=== PATIENT | female | born 2000 | race Caucasian/White ===

== ENCOUNTER 2020-12-29 23:38 | Emergency (ER) | payer SELFPAY ==
[2020-12-30] MEDS ORDERED: AZITHROMYCIN 250 MG TAB ONE (01:09)
[2020-12-30] MEDS ORDERED: CEFTRIAXONE 500 MG/VIAL ONE (01:09)
[2020-12-30] MEDS ORDERED: WATER FOR INJ,STERILE 10 ML ONE (01:10)
--- NOTE | 2020-12-30 01:41 | ER ---
Nurse's Notes [facility] Name: Betsy Crain Age: 20 yrs Sex: Female : 2000 Arrival Date: 12/29/2020 Time: 23:40 Bed 20 Private MD: Diagnosis: STD Exposure Presentation: 12/29 23:49 Chief complaint: Patient states: significant other text her today telling her he tested em positive for gonorrhea, denies burning with urination, discharge or pain. Coronavirus screen: Client denies travel out of the [place] in the last 14 days. Ebola Screen: Patient negative for fever greater than or equal to 101.5 degrees Fahrenheit, and additional compatible Ebola Virus Disease symptoms Patient denies exposure to infectious person. Patient denies travel to an Ebola-affected area in the 21 days before illness onset. No symptoms or risks identified at this time. Initial Sepsis Screen: Does the patient meet any 2 criteria? HR > 90 bpm. No. Patient's initial sepsis screen is negative. Does the patient have a suspected source of infection? No. Patient's initial sepsis screen is negative. Risk Assessment: Do you want to hurt yourself or someone else? Patient reports no desire to harm self or others. Onset of symptoms was December 29, 2020. 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 - Social history:: Smoking status: Reported history of juuling and/or vaping. Screenin/18 00:14 Abuse screen: Denies threats or abuse. Nutritional screening: No deficits noted. ea Tuberculosis screening: No symptoms or risk factors identified. Fall Risk None identified. Assessment: 00:45 General: Appears in no apparent distress. Behavior is calm, cooperative, appropriate ea for age. Pain: Denies pain. Neuro: Level of Consciousness is awake, alert, obeys commands, Oriented to person, place, time. Cardiovascular: Patient's skin is warm and dry. Respiratory: Airway is patent Respiratory effort is even, unlabored, Respiratory pattern is regular, symmetrical. Derm: Skin is pink, warm \T\ dry. 01:21 Reassessment: Patient and/or family updated on plan of care and expected duration. Pain ea level reassessed. Patient is alert, oriented x 3, equal unlabored respirations, skin warm/dry/pink. Awaiting on disposition. 01:45 Reassessment: Patient and/or family updated on plan of care and expected duration. Pain ea level reassessed. Patient is alert, oriented x 3, equal unlabored respirations, skin warm/dry/pink. Discharge instruction given to patient verbalized the understanding of instruction. pt left ED ambulatory tolerating well. Vital Signs: 12/29 23:49 BP 127 / 73; Pulse 101; Resp 20; Temp 98.7; Pulse Ox 99% on R/A; Weight 52.16 kg; em Height 5 ft. 5 in. (165.10 cm); Pain 0/10; 12/30 01:46 BP 120 / 68; Pulse 88; Resp 18; Pulse Ox 100% ; ea 12/29 23:49 Body Mass Index 19.14 (52.16 kg, 165.10 cm) em ED Course: 12/29 23:40 Patient arrived in ED. bp1 23:51 Triage completed. em 23:52 Arm band placed on. em 12/30 00:14 Shital Singh, RN is Primary Nurse. ea 00:14 Patient has correct armband on for positive identification. Bed in low position. Call ea light in reach. 00:16 Humble Mayer MD is Attending Physician. 7 01:40 La Lockhart MD is Referral Physician. [facility] 01:46 No provider procedures requiring assistance completed. Patient did not have IV access ea during this emergency room visit. Administered Medications: 00:58 Drug: Rocephin (cefTRIAXone) 500 mg Route: IM; Site: right gluteus; ea 01:20 Follow up: Response: No adverse reaction ea 00:58 Drug: AZITHromycin 1 grams Route: PO; ea 01:20 Follow up: Response: No adverse reaction ea Outcome: 01:40 Discharge ordered by . 7 01:46 Discharged to home ambulatory, with family. ea 01:46 Condition: stable 01:46 Discharge instructions given to patient, Instructed on discharge instructions, follow up and referral plans. Demonstrated understanding of instructions, follow-up care. 01:47 Patient left the ED. ea Signatures: Chaz Dempsey, RN Shital Carpio RN RN ea Paniauga, Brittany bp1 Holmes, Maurice, MD MD mh7
--- NOTE | 2020-12-30 01:41 | EDPHYS ---
Physician Documentation [facility] Name: Betsy Crain Age: 20 yrs Sex: Female : 2000 Arrival Date: 12/29/2020 Time: 23:40 Bed 20 Private MD: ED Physician Humble Mayer HPI: 12/30 01:04 This 20 yrs old Female presents to ER via Ambulatory with complaints of STD mh7 Exposure. 01:04 The patient presents with a possible exposure to a sexually transmitted disease, mh7 gonorrhea. Onset: The symptoms/episode began/occurred today. Modifying factors: The symptoms are alleviated by nothing, the symptoms are aggravated by nothing. Associated signs and symptoms: Pertinent negatives: constipation, cramping, diarrhea, dyspareunia, dysuria, fever, hematuria, nausea, urinary frequency, vaginal bleeding, vaginal discharge, vomiting. Severity of symptoms: At their worst the symptoms were no symptoms, in the emergency department the symptoms no symptoms. The patient is sexually active, reportedly has a single partner, does not use protection during intercourse. States that her boyfriend text her that he tested positive for gonorrhea. She denies any symptoms.. 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 - Social history:: Smoking status: Reported history of juuling and/or vaping. ROS: 12/30 01:04 Constitutional: Negative for fever, chills, and weight loss, Eyes: Negative for injury, mh7 pain, redness, and discharge, ENT: Negative for injury, pain, and discharge, Neck: Negative for injury, pain, and swelling, Cardiovascular: Negative for chest pain, palpitations, and edema, Respiratory: Negative for shortness of breath, cough, wheezing, and pleuritic chest pain, Abdomen/GI: Negative for abdominal pain, nausea, vomiting, diarrhea, and constipation, Back: Negative for injury and pain, : Negative for injury, bleeding, discharge, and swelling, MS/Extremity: Negative for injury and deformity, Skin: Negative for injury, rash, and discoloration, Neuro: Negative for headache, weakness, numbness, tingling, and seizure, Psych: Negative for depression, anxiety, suicide ideation, homicidal ideation, and hallucinations, Allergy/Immunology: Negative for hives, rash, and allergies, Endocrine: Negative for neck swelling, polydipsia, polyuria, polyphagia, and marked weight changes, Hematologic/Lymphatic: Negative for swollen nodes, abnormal bleeding, and unusual bruising. Exam: 01:04 Constitutional: This is a well developed, well nourished patient who is awake, alert, mh7 and in no acute distress. Head/Face: Normocephalic, atraumatic. Eyes: Pupils equal round and reactive to light, extra-ocular motions intact. Lids and lashes normal. Conjunctiva and sclera are non-icteric and not injected. Cornea within normal limits. Periorbital areas with no swelling, redness, or edema. Neck: Trachea midline, no thyromegaly or masses palpated, and no cervical lymphadenopathy. Supple, full range of motion without nuchal rigidity, or vertebral point tenderness. No Meningismus. Chest/axilla: Normal chest wall appearance and motion. Nontender with no deformity. No lesions are appreciated. Cardiovascular: Regular rate and rhythm with a normal S1 and S2. No gallops, murmurs, or rubs. Normal PMI, no JVD. No pulse deficits. Respiratory: Lungs have equal breath sounds bilaterally, clear to auscultation and percussion. No rales, rhonchi or wheezes noted. No increased work of breathing, no retractions or nasal flaring. Abdomen/GI: Soft, non-tender, with normal bowel sounds. No distension or tympany. No guarding or rebound. No evidence of tenderness throughout. Back: No spinal tenderness. No costovertebral tenderness. Full range of motion. Skin: Warm, dry with normal turgor. Normal color with no rashes, no lesions, and no evidence of cellulitis. MS/ Extremity: Pulses equal, no cyanosis. Neurovascular intact. Full, normal range of motion. Neuro: Awake and alert, GCS 15, oriented to person, place, time, and situation. Cranial nerves II-XII grossly intact. Motor strength 5/5 in all extremities. Sensory grossly intact. Cerebellar exam normal. Normal gait. Psych: Awake, alert, with orientation to person, place and time. Behavior, mood, and affect are within normal limits. 01:04 : Pelvic Exam: The exam is refused by the patient/guardian. The risks and consequences are understood by the patient. Vital Signs: 12/29 23:49 BP 127 / 73; Pulse 101; Resp 20; Temp 98.7; Pulse Ox 99% on R/A; Weight 52.16 kg; em Height 5 ft. 5 in. (165.10 cm); Pain 0/10; 12/30 01:46 BP 120 / 68; Pulse 88; Resp 18; Pulse Ox 100% ; ea 12/29 23:49 Body Mass Index 19.14 (52.16 kg, 165.10 cm) em MDM: 01:38 Differential diagnosis: vaginosis, STD exposure. Data reviewed: vital signs, nurses [facility] notes, lab test result(s), urinalysis, UPT: negative. Data interpreted: Pulse oximetry: on room air is 99 %. Interpretation: normal. Counseling: I had a detailed discussion with the patient and/or guardian regarding: the historical points, exam findings, and any diagnostic results supporting the discharge/admit diagnosis, lab results, the need for outpatient follow up. Response to treatment: the patient's symptoms have markedly improved after treatment. 01:40 Patient medically screened. [facility] 12/30 00:56 Order name: Urine --Ancillary (enter results) 3 12/30 00:56 Order name: Urine --Ancillary [facility] 12/30 00:46 Order name: Urine Dipstick-Ancillary (obtain specimen); Complete Time: 00:53 [facility] 12/30 00:46 Order name: Urine Test (obtain specimen); Complete Time: 00:53 [facility] Administered Medications: 00:58 Drug: Rocephin (cefTRIAXone) 500 mg Route: IM; Site: right gluteus; ea 01:20 Follow up: Response: No adverse reaction ea 00:58 Drug: AZITHromycin 1 grams Route: PO; ea 01:20 Follow up: Response: No adverse reaction ea Disposition: 12/30/20 01:40 Discharged to Home. Impression: STD Exposure. - Condition is Stable. - Discharge Instructions: Sexually Transmitted Disease, [id number]. - Medication Reconciliation Form, Thank You Letter, Antibiotic Education, Prescription Opioid Use form. - Follow up: Private Physician; When: 1 - 2 days; Reason: Worsening of condition, Recheck today's complaints, Continuance of care, Re-evaluation by your physician. Follow up: La Lockhart MD; When: 1 - 2 days; Reason: Recheck today's complaints. - Problem is new. - Symptoms have improved. Signatures: Dispatcher [employer] Chaz Garrett RN Shital Carpio RN RN ea Holmes, Maurice, MD MD mh7 Corrections: (The following items were deleted from the chart) 01:47 01:40 12/30/2020 01:40 Discharged to Home. Impression: STD Exposure. Condition is ea Stable. Forms are Medication Reconciliation Form, Thank You Letter, Antibiotic Education, Prescription Opioid Use. Follow up: Private Physician; When: 1 - 2 days; Reason: Worsening of condition, Recheck today's complaints, Continuance of care, Re-evaluation by your physician. Follow up: La Lockhart; When: 1 - 2 days; Reason: Recheck today's complaints. Problem is new. Symptoms have improved. mh7
[2020-12-30 01:43] LABS: Urine Specific Gravity/Preg >1.030 (1.005-1.030)
[2020-12-30 02:01] VITALS: TEMP 98.7
[2020-12-30 02:02] VITALS: BP 120/68; O2SAT 100
[2020-12-31 12:12] LABS: Urine Blood TRACE (Negative); Urine Glucose NEGATIVE (Negative); Urine Protein NEGATIVE (Negative); Urine Specific Gravity >1.030 (1.005-1.030); Urine pH 5.5 (5.0-7.0)
[2021-01-01 14:48] LABS: Urine Blood Trace-intact (Negative); Urine Glucose Negative (Negative); Urine Protein Negative (Negative); Urine Specific Gravity >=1.030 (1.005-1.030); Urine pH 5.5 (5.0-7.0)
== END 2020-12-30 01:47 | disposition home or self-care (01) ==
LOC: ER 23:38
DX: Z20.2 Contact with and (suspected) exposure to infections with a predominantly sexual mode of transmission (principal)
CPT/HCPCS: 81003; 81025; 96372; 99283; J0696